=== PATIENT | female | born 1985 | race Two or more races ===

== ENCOUNTER 2021-03-12 15:48 | Emergency (ER) | payer MEDICAID ==
[2021-03-12 16:21] VITALS: BP 123/60; PULSE 69
--- NOTE | 2021-03-12 16:42 | EDM.PDOC ---
ED HPI GENERAL MEDICAL PROBLEM - General Chief Complaint: ENT Problem Stated Complaint: POSSIBLE PINK EYE Time Seen by Provider: 03/12/21 16:40 Source of Information: Reports: Patient, RN, RN Notes Reviewed History Limitations: Reports: No Limitations - History of Present Illness INITIAL COMMENTS - FREE TEXT/NARRATIVE: [place] is a 35 y/o female who presents to the ED via personal vehicle with complaints of irritation and redness to left eye. The patient reports she noticed irritation to her left eye yesterday. Today she woke with yellow crust on her inner eye and injection to her conjunctiva; the irritation has maintained. The patient reports she does wear contacts daily, however she is not wearing her contact for this eye right now. She denies injury to the eye and does not believe anything is caught in her eye. She was able to apply eye makeup, including large false lashes, this morning without exacerbating the irritation. Left Eye Pain Score (Numeric/FACES): 4 - Related Data Allergies Allergy/AdvReac Type Severity Reaction Status Date / Time No Known Allergies Allergy Verified 03/12/21 16:22 Home Meds: Home Meds PNV95/Ferrous Fumarate/FA [ Multivitamins] 1 tab PO DAILY 12/08/14 [History] Acetaminophen/HYDROcodone [[place] 325-5 MG] 1 tab PO Q6H PRN #30 tablet 12/10/14 [Rx] Ibuprofen [Motrin] 600 mg PO Q6H PRN #30 tablet 12/10/14 [Rx] Simethicone 80 mg PO Q6HR PRN 30 Days tab.chew 12/10/14 [Rx] Past Medical History HEENT History: Reports: Impaired Vision Other HEENT History: wears contacts Cardiovascular History: Reports: None Respiratory History: Reports: None Gastrointestinal History: Reports: None Genitourinary History: Reports: None 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 Neurological History: Reports: None Psychiatric History: Reports: Depression Endocrine/Metabolic History: Reports: Obesity/BMI 30+ Hematologic History: Reports: Anemia Immunologic History: Reports: None Oncologic (Cancer) History: Reports: None Dermatologic History: Reports: None - Infectious Disease History Infectious Disease History: Reports: Shingles - Past Surgical History Head Surgeries/Procedures: Reports: None Female Surgical History: Reports: Section Other Female Surgeries/Procedures: x8 Musculoskeletal Surgical History: Reports: Other (See Below) Other Musculoskeletal Surgeries/Procedures:: right ankle Social & Family History - Tobacco Use Tobacco Use Status *Q: Former Tobacco User Years of Tobacco use: 1 Packs/Tins Daily: 0.5 Used Tobacco, but Quit: Yes Month/Year Tobacco Last Used: february Second Hand Smoke Exposure: No - Caffeine Use Caffeine Use: Reports: Coffee, Soda - Recreational Drug Use Recreational Drug Use: No ED ROS ENT - Review of Systems Review Of Systems: Comprehensive ROS is negative, except as noted in HPI. ED EXAM, ENT - Physical Exam Exam: See Below Exam Limited By: No Limitations General Appearance: Alert, Mild Distress (Left eye irritation) Eye Exam: Left Eye: Conjunctival Injection, Corneal Abrasion (Fluorescein exam performed), Other (Clear, watery drainage), Bilateral Eye: EOMI, PERRL (2mm) Ears: Normal External Exam, Normal Canal, Hearing Grossly Normal, Normal TMs Nose: Normal Inspection, Normal Mucousa, No Blood Mouth/Throat: Normal Inspection, Normal Gums, Normal Lips, Normal Oropharynx, Normal Teeth Head: Atraumatic, Normocephalic Neck: Normal Inspection, Supple, Non-Tender, Full Range of Motion Respiratory/Chest: No Respiratory Distress, Lungs Clear, Normal Breath Sounds, No Accessory Muscle Use, Chest Non-Tender Cardiovascular: Normal Peripheral Pulses, Regular Rate, Rhythm, No Edema, No Gallop, No JVD, No Murmur, No Rub Neurological: Alert, Oriented, CN II-XII Intact, Normal Cognition, Normal Gait, No Motor/Sensory Deficits Psychiatric: Normal Affect, Normal Mood Skin: Warm, Dry, Intact, Normal Color, No Rash. No: Cyanosis, Erythema, Mottled, Pallor Lymphatic: No Adenopathy Course - Vital Signs Last Recorded V/S: Last Vital Signs Temp 97.5 F 03/12/21 16:14 Pulse 69 03/12/21 16:14 Resp 16 03/12/21 16:14 BP 123/60 03/12/21 16:14 Pulse Ox 100 03/12/21 16:14 - Orders/Labs/Meds Meds: Medications Discontinued Medications Generic Name Dose Route Start Last Admin Trade Name Freq PRN Reason Stop Dose Admin Fluorescein Sodium 1 mg 03/12/21 17:14 03/12/21 17:24 Fluorescein 1 Mg Ophth Strip EYELF 03/12/21 17:15 1 mg ONETIME ONE Administration Gentamicin Sulfate Confirm 03/12/21 17:41 03/12/21 17:47 Gentamicin 0.3% Ophth Soln 5 Ml Bottle Administered 03/12/21 17:42 Not Given Dose 5 ml .ROUTE .STK-MED ONE Tetracaine HCl 1 ml 03/12/21 17:14 03/12/21 17:24 Tetracaine Hcl/Pf 0.5% 4 Ml Bottle EYELF 03/12/21 17:15 1 ml ASDIRECTED ONE Administration - Re-Assessments/Exams Free Text/Narrative Re-Assessment/Exam: 03/12/21 Tetracaine and Fluorescein examination performed. Findings of examination reviewed with patient. Will treat corneal abrasion with gentamicin drops. Discussed supportive cares for corneal abrasion. Red flag signs and symptoms which would warrant reevaluation reviewed. Patient verbalized understanding and agreement with the plan of care. Departure - Departure Time of Disposition: 17:33 Disposition: Home, Self-Care 01 Condition: Good Clinical Impression: Left corneal abrasion Qualifiers: Encounter type: initial encounter Qualified Code(s): S05.02XA - Injury of conjunctiva and corneal abrasion without foreign body, left eye, initial encounter - Discharge Information *PRESCRIPTION DRUG MONITORING PROGRAM REVIEWED*: Not Applicable *COPY OF PRESCRIPTION DRUG MONITORING REPORT IN PATIENT JULIETA: Not Applicable Instructions: Corneal Abrasion, [id number] Forms: ED Department Discharge Additional Instructions: Rx: gentamicin ophthal drops. 1.) Instill one drop into left eye three times a day, for five days. 2.) Do not wear contacts for at least one week. 3.) Follow up with primary care provider, or return to the emergency department, with no improvement in symptoms, or should symptoms persists past five days. Sepsis Event Note (ED) - Evaluation Sepsis Screening Result: No Definite Risk
[2021-03-12] MEDS ORDERED: Fluorescein 1 MG Ophth Strip EYELF ONE (17:14)
[2021-03-12] MEDS ORDERED: Tetracaine HCl/PF 0.5% 4 ML Bottle EYELF ONE (17:14)
[2021-03-12] MEDS ORDERED: Gentamicin 0.3% Ophth Soln 5 ML Bottle ONE (17:41)
== END 2021-03-12 17:45 | disposition home or self-care (01) ==
LOC: DL.ED 15:48
DX: S05.02XA Injury of conjunctiva and corneal abrasion without foreign body, left eye, initial encounter (principal); E66.9 Obesity, unspecified; Z68.42 Body mass index [BMI] 45.0-49.9, adult; Z87.891 Personal history of nicotine dependence; W22.8XXA Striking against or struck by other objects, initial encounter
CPT/HCPCS: 99283; A9270-GY

== ENCOUNTER 2021-04-07 21:12 | Emergency (ER) | payer MEDICAID ==
[2021-04-07 21:29] VITALS: BP 124/76; PULSE 71
[2021-04-07] MEDS ORDERED: Ibuprofen 600 MG Tab PO ONE (22:54)
--- NOTE | 2021-04-07 22:57 | EDM.PDOC ---
ED HPI GENERAL MEDICAL PROBLEM - General Chief Complaint: Back Pain or Injury Stated Complaint: LOWER BACK PAIN. SINCE YESTERDAY Time Seen by Provider: 04/07/21 21:40 Source of Information: Reports: Patient History Limitations: Reports: No Limitations - History of Present Illness INITIAL COMMENTS - FREE TEXT/NARRATIVE: ED with c/o low back pain greater on right, radiates to buttock but not below , no numbness or weakness, States lifting alaundry and twisting to throw in hamper and onset of pain. Tylenol last this am. Denies prior injury. Right Lower Back Pain Score (Numeric/FACES): 6 - Related Data Allergies Allergy/AdvReac Type Severity Reaction Status Date / Time No Known Allergies Allergy Verified 04/07/21 21:29 Home Meds: Home Meds FLUoxetine HCl [Prozac] 20 mg PO DAILY 04/07/21 [History] Prazosin [Minpress] 1 mg PO DAILY 04/07/21 [History] hydrOXYzine HCL [Hydroxyzine HCl] 25 mg PO DAILY 04/07/21 [History] Past Medical History HEENT History: Reports: Impaired Vision Other HEENT History: wears contacts Cardiovascular History: Reports: None Respiratory History: Reports: None Gastrointestinal History: Reports: None Genitourinary History: Reports: None [employer] 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 [employer] SANITARIAN History: SAB x3 Neurological History: Reports: None Psychiatric History: Reports: Depression Endocrine/Metabolic History: Reports: Obesity/BMI 30+ Hematologic History: Reports: Anemia Immunologic History: Reports: None Oncologic (Cancer) History: Reports: None Dermatologic History: Reports: None - Infectious Disease History Infectious Disease History: Reports: Shingles - Past Surgical History Head Surgeries/Procedures: Reports: None Female Surgical History: Reports: Section Other Female Surgeries/Procedures: x8 Musculoskeletal Surgical History: Reports: Other (See Below) Other Musculoskeletal Surgeries/Procedures:: right ankle Social & Family History - Tobacco Use Tobacco Use Status *Q: Current Some Day Tobacco User Years of Tobacco use: 1 Packs/Tins Daily: 0.1 Second Hand Smoke Exposure: Yes - Caffeine Use Caffeine Use: Reports: Coffee, Soda - Recreational Drug Use Recreational Drug Use: No ED ROS GENERAL - Review of Systems Review Of Systems: Comprehensive ROS is negative, except as noted in HPI. ED EXAM,LOWER BACK PAIN/INJURY - Physical Exam Exam: See Below Exam Limited By: No Limitations General Appearance: Alert, Mild Distress Eye Exam: Bilateral Eye: EOMI Ears: Normal External Exam Nose: Normal Inspection Throat/Mouth: Normal Inspection Head: Atraumatic, Normocephalic Neck: Normal Inspection Respiratory/Chest: No Respiratory Distress, Lungs Clear Cardiovascular: Normal Peripheral Pulses, Regular Rate, Rhythm GI/Abdominal: Soft, Non-Tender Back Exam: Full Range of Motion, Paraspinal Tenderness (mild right). No: Muscle Spasm, Vertebral Tenderness Extremities: Normal Inspection Neurological: Alert, Normal Mood/Affect, Oriented x 3, Straight Leg Raise (R). No: Abnormal Gait DTR - Lower Extremities: 2+: Knee (R), Knee (L) Psychiatric: Normal Affect Skin Exam: Warm, Dry, Intact Course - Vital Signs Last Recorded V/S: Last Vital Signs Temp 96.8 F L 04/07/21 21:23 Pulse 71 04/07/21 21:23 Resp 18 04/07/21 21:23 BP 124/76 04/07/21 21:23 Pulse Ox 96 04/07/21 21:23 - Orders/Labs/Meds Meds: Medications Discontinued Medications Generic Name Dose Route Start Last Admin Trade Name Johana PRN Reason Stop Dose Admin Ibuprofen 600 mg 04/07/21 22:54 04/07/21 22:59 Ibuprofen 600 Mg Tab PO 04/07/21 22:55 600 mg ONETIME ONE Administration Departure - Departure Time of Disposition: 22:55 Disposition: Home, Self-Care 01 Condition: Good Clinical Impression: Low back pain Qualifiers: Chronicity: acute Back pain laterality: right Sciatica presence: without sciat ica Qualified Code(s): M54.5 - Low back pain - Discharge Information *PRESCRIPTION DRUG MONITORING PROGRAM REVIEWED*: No *COPY OF PRESCRIPTION DRUG MONITORING REPORT IN PATIENT JULIETA: No Instructions: Back Injury Prevention, [id number] Forms: ED Department Discharge Additional Instructions: ice to low back alternate tylenol 650mg and ibuprofen 600mg every 4 hours as needed for discomfort activity as tolerated clinic follow up next week if not improving Sepsis Event Note (ED) - Evaluation Sepsis Screening Result: No Definite Risk
== END 2021-04-07 23:00 | disposition home or self-care (01) ==
LOC: DL.ED 21:12
DX: M54.5 Low back pain (principal); E66.9 Obesity, unspecified; Z68.42 Body mass index [BMI] 45.0-49.9, adult; Z72.0 Tobacco use
CPT/HCPCS: 99283; A9270

== ENCOUNTER 2022-03-20 17:17 | Emergency (ER) | payer MEDICAID, OTHER ==
[2022-03-20 17:49] VITALS: BP 124/72; PULSE 71
[2022-03-20] MEDS ORDERED: Ketorolac 30 MG/ML SDV IM ONE (18:18)
[2022-03-20] MEDS ORDERED: Orphenadrine 60 MG/2 ML Inj IM ONE (18:19)
[2022-03-20] MEDS ORDERED: predniSONE 20 MG Tab PO ONE (18:47)
== END 2022-03-20 19:01 | disposition home or self-care (01) ==
LOC: DL.ED 17:17
DX: M62.838 Other muscle spasm (principal); E66.9 Obesity, unspecified; Z68.41 Body mass index [BMI] 40.0-44.9, adult
CPT/HCPCS: 72040; 72070; 96372; 99283; J1885; J2360; J7512